=== PATIENT | female | born 1935 | race Caucasian/White ===

== ENCOUNTER 2021-08-25 22:52 | Emergency (ER) | payer MEDICARE, OTHER ==
[~2021-08-25 22:52] MED LIST: Aspirin Chewable 81 MG TAB ONE; Heparin 10,000 UNITS/ 10 ML VIAL ONE; Metoprolol Tartrate 5 MG/5 ML VIAL ONE
[2021-08-25] MEDS ORDERED: Nitroglycerin 50 MG/250 ML BOT 250 ML ONE (23:07)
[2021-08-25] MEDS ORDERED: Nitroglycerin 2% Ointment 1 INCH/1 GM Packet ONE (23:07)
[2021-08-25] MEDS ORDERED: Furosemide 100 MG/10 ML VIAL ONE (23:24)
[2021-08-25 23:39] LABS: Hemoglobin 13.8 g/dL (12.0-15.5); Mean Corpuscular HGB CONC 31.7 g/dL (32.0-36.0); Mean Corpuscular Hemoglobin 29.1 pg (27.0-33.0); Mean Corpuscular Volume 91.8 fl (81.6-98.3); Mean Platelet Volume 11.5 fl (7.4-10.4); Platelet Count 332 10x3/uL (150-450); RBC Distribution Width 13.2 % (11.5-14.5); Red Blood Cell (RBC) Count 4.75 10x6/uL (3.90-5.03); White Blood Cell (WBC) Count 19.1 10x3/uL (3.5-10.5)
[2021-08-25 23:56] LABS: Bilirubin Neg (Negative); Blood, Urine 25 (Negative); Clarity Clear (Clear); Glucose, Urine (Dipstick) 250 mg/dL (Negative); Ketone, Urine Negative (Negative); Leukocyte 100 (Negative); Nitrite Negative (Negative); Protein, Urine (Dipstick) 500 mg/dl (Neg-Trace); Specific Gravity, Urine 1.015 (1.002-1.036); Urobilinogen Normal mg/dL (Less than 2)
[2021-08-25 23:59] LABS: MDiff Complete? YES
[2021-08-26 00:01] LABS: Eosinophils 5 % (0-10); Lymphocytes 51 % (21-51); Monocytes 9 % (0-10); Neutrophil 35 % (42-75); Platelet Morphology Comment Appears Adequate
[2021-08-26 00:02] LABS: ALT (SGPT) 27 U/L (8-55); AST (SGOT) 36 U/L (5-34); Albumin 4.1 g/dL (3.4-4.8); Alkaline Phosphatase 62 U/L (40-110); Anion Gap 24 mmol/L (10-20); BUN (Urea Nitrogen) 20 mg/dL (9.8-20.1); Bilirubin, Total 0.3 mg/dL (0.2-1.2); Calc. Creatinine Clearance 0 mL/min (70-130); Calcium 9.4 mg/dL (7.8-10.44); Carbon Dioxide 17 mmol/L (23-31); Chloride 102 mmol/L (98-107); Estimated GFR 30; Globulin 3.2 g/dL (2.4-3.5); Glucose 398 mg/dL (83-110); Lipase 145 U/L (8-78); Magnesium 1.3 mg/dL (1.6-2.6); Potassium 3.4 mmol/L (3.5-5.1); Protein, Total 7.3 g/dL (5.8-8.1); RBC Morphology Normal; Sodium 140 mmol/L (136-145)
[2021-08-26 00:10] LABS: Bacteria/HPF 4+ HPF (None Seen); RBC/HPF 0-3 HPF (0-3); Renal Epithelial 0-3 HPF (None Seen); Transitional Epithelial 0-3 HPF (None Seen); WBC/HPF 21-50 HPF (0-3)
[2021-08-26 00:19] LABS: CKMB 2.2 ng/mL (0-6.6)
[2021-08-26] MEDS ORDERED: Senokot S 8.6-50 MG TAB PO PRN (01:04)
[2021-08-26] MEDS ORDERED: Guaifenesin DM 100-10/5 ML UDCUP PO PRN (01:04)
[2021-08-26] MEDS ORDERED: Dextrose 50% Abboject 50 ML SYRINGE SLOW IVP PRN (01:04)
[2021-08-26] MEDS ORDERED: Acetaminophen 325 MG TAB PO PRN (01:04)
[2021-08-26] MEDS ORDERED: Dextrose 5% in Water 1,000 ML IV PRN (01:04)
[2021-08-26] MEDS ORDERED: HumaLOG 300 UNITS/3 ML VIAL SC PRN (01:04)
[2021-08-26] MEDS ORDERED: Ondansetron PF 4 MG/2 ML Vial IVP PRN (01:04)
[2021-08-26] MEDS ORDERED: Calcium Carbonate 500 MG ChewTAB PO PRN (01:04)
[2021-08-26] MEDS ORDERED: Nitroglycerin 0.4 MG TAB (25 Tab Bottle) SL PRN (01:06)
[2021-08-26] MEDS ORDERED: hydrALAZINE 20 MG/ML VIAL SLOW IVP PRN (01:09)
[2021-08-26] MEDS ORDERED: Potassium Chloride 20 MEQ TAB PO SCH (01:15)
[2021-08-26] MEDS ORDERED: Nitroglycerin 2% Ointment 1 INCH/1 GM Packet TOP SCH (01:15)
[2021-08-26] MEDS ORDERED: Magnesium 2 GM/50 ML(in water) 2 GM in Premix Bag 1 BAG IVPB SCH (01:15)
[2021-08-26] MEDS ORDERED: Insulin Regular 300 UNITS/3 ML VIAL IVP SCH (01:30)
[2021-08-26] MEDS ORDERED: TICAGRELOR 90 MG TABLET ONE (01:34)
[2021-08-26] MEDS ORDERED: Aspirin 300 MG Suppository ONE (01:35)
[2021-08-26] MEDS ORDERED: Heparin 25,000 units/D5W 500 ML ONE (01:41)
[2021-08-26] MEDS ORDERED: Heparin 10,000 UNITS/ 10 ML VIAL ONE (01:43)
[2021-08-26] MEDS ORDERED: Nitroglycerin 50 MG/250 ML BOT 0 ML ONE (01:43)
[2021-08-26] MEDS ORDERED: Adenosine 6 MG/2 ML VIAL ONE (01:44)
[2021-08-26] MEDS ORDERED: Verapamil 5 MG/2 ML VIAL ONE (01:44)
[2021-08-26] MEDS ORDERED: Bivalirudin 250 MG VIAL ONE (01:44)
[2021-08-26] MEDS ORDERED: Atropine Sulfate 0.4 mg/1 ml Vial ONE (01:45)
[2021-08-26] MEDS ORDERED: Ondansetron PF 4 MG/2 ML Vial ONE (01:45)
[2021-08-26] MEDS ORDERED: Midazolam HCl 2 mg/2 ml Vial ONE (01:46)
[2021-08-26] MEDS ORDERED: Fentanyl 100 MCG/2 ML VIAL ONE (01:46)
[2021-08-26 01:51] LABS: PTT 21.8 sec (22.0-33.0); Prothrombin Time 10.7 sec (9.5-12.1)
[2021-08-26 02:56] LABS: SARS-CoV-2 NAA Rapid Test DETECTED (NotDetected)
[2021-08-26 04:11] LABS: #Monocytes 0.9 10x3/uL (0.0-1.1); #Neutrophils 12.3 10x3/uL (1.5-8.4); %Basophils 0.3 % (0.0-2.0); %Eosinophils 0.1 % (0.0-6.0); %Lymphocytes 7.3 % (18.0-47.0); %Monocytes 6.4 % (0.0-10.0); %Neutrophils 85.3 % (40.0-75.0); Mean Corpuscular HGB CONC 33.1 g/dL (32.0-36.0); Mean Corpuscular Volume 87.6 fl (81.6-98.3); Mean Platelet Volume 11.1 fl (7.4-10.4); Platelet Count 243 10x3/uL (150-450); RBC Distribution Width 13.3 % (11.5-14.5); Red Blood Cell (RBC) Count 3.79 10x6/uL (3.90-5.03); White Blood Cell (WBC) Count 14.4 10x3/uL (3.5-10.5)
[2021-08-26 04:24] LABS: Anion Gap 16 mmol/L (10-20); BUN (Urea Nitrogen) 20 mg/dL (9.8-20.1); Calc. Creatinine Clearance 0 mL/min (70-130); Calcium 9.4 mg/dL (7.8-10.44); Carbon Dioxide 22 mmol/L (23-31); Chloride 102 mmol/L (98-107); Estimated GFR 38; Glucose 298 mg/dL (83-110); Magnesium 1.2 mg/dL (1.6-2.6); Potassium 3.6 mmol/L (3.5-5.1); Sodium 136 mmol/L (136-145)
[2021-08-26 04:36] LABS: Critical Call Chem Troponin I NUR.AEB@0436
[2021-08-26] MEDS ORDERED: Furosemide 20 MG/2 ML VIAL SLOW IVP SCH (06:00)
[2021-08-26] MEDS ORDERED: Lantus 1000 UNITS/10 ML VIAL SC SCH (09:00)
[2021-08-26] MEDS ORDERED: Enoxaparin Sodium 40 MG/0.4 ML SYRINGE SC SCH (09:00)
[2021-08-26] MEDS ORDERED: Aspirin 81 mg Enteric Coated Tablet PO SCH (09:00)
[2021-08-26] MEDS ORDERED: Metoprolol Tartrate 50 MG TAB PO SCH (09:00)
[2021-08-26] MEDS ORDERED: hydrALAZINE 25 MG TAB PO SCH (09:00)
[2021-08-26] MEDS ORDERED: Iopamidol 300 61% 100 ML VIAL FS ONE (14:43)
[2021-08-26] MEDS ORDERED: Rosuvastatin 20 MG TAB PO SCH (21:00)
== END 2021-08-26 04:15 | disposition short-term general hospital (02) ==
LOC: CSHERS 22:52
DX: U07.1 COVID-19 (principal); J81.0 Acute pulmonary edema; I16.1 Hypertensive emergency; I10 Essential (primary) hypertension; E11.9 Type 2 diabetes mellitus without complications
CPT/HCPCS: 33967; 36415; 51702; 71045; 80048; 80053; 81003; 81015; 82553; 83690; 83735; 83880; 84443; 84484; 85025; 85347; 85610; 85730; 92920; 93005; 93458; 96365; 96366; 96368; 96374; 96375; 99152; 99153; 99292; C1725; C1726; C1769; C1887; G0278; J0153; J0461; J0583; J1644; J1940; J2250; J2405; J3010; Q9967; U0002